=== PATIENT | male | born 2000 | race Caucasian/White ===

== ENCOUNTER 2023-02-15 13:54 | Emergency (ER) | payer MEDICAID, OTHER ==
[2023-02-15] MEDS ORDERED: Lidocaine 1% (PF) 30 ML VIAL ONE (14:42)
[2023-02-15] MEDS ORDERED: Boostrix 0.5 ML (Tdap) VIAL (>/=7 yrs of age) ONE (14:42)
[2023-02-15] MEDS ORDERED: HYDROcodone/Acetaminophen 10/325 mg Tablet ONE (14:42)
[2023-02-15] MEDS ORDERED: Bacitracin 1 PK ONE (16:12)
== END 2023-02-15 16:46 | disposition home or self-care (01) ==
LOC: MADERS 13:54
DX: S61.102A Unspecified open wound of left thumb with damage to nail, initial encounter (principal); F17.290 Nicotine dependence, other tobacco product, uncomplicated; Z23 Encounter for immunization; W23.0XXA Caught, crushed, jammed, or pinched between moving objects, initial encounter
CPT/HCPCS: 11750; 90471; 90715; J2001

== ENCOUNTER 2023-08-06 18:06 | Emergency (ER) | payer MEDICAID, SELFPAY | END 2023-08-06 18:53 | disposition home or self-care (01) | LOC: MADERS 18:06 | DX: S51.811D Laceration without foreign body of right forearm, subsequent encounter (principal); F17.290 Nicotine dependence, other tobacco product, uncomplicated; F17.200 Nicotine dependence, unspecified, uncomplicated; W27.0XXD Contact with workbench tool, subsequent encounter ==